=== PATIENT | female | born 1955 | race African-American/Black ===

== ENCOUNTER 2021-01-26 17:53 | Inpatient (IN) | payer MEDICAID, OTHER ==
[~2021-01-26] VITALS: Ht 167.6 cm; Wt 96.6 kg
[2021-01-26] MEDS: METOPROLOL TARTRATE 5MG/5ML VIAL IV SCH ×3 (18:43→21:12)
[2021-01-26 18:46] LABS: BASOPHILS % 0.7 % (0.0-2.0); EOSINOPHILS % 1.8 % (0.0-5.0); HEMOGLOBIN. 13.5 g/dL (12.0-16.0); LYMPHOCYTES % 49.1 % (20.0-50.0); MEAN CORPUSCULAR HEMOGLOBIN 30.9 pg (28.0-32.0); MEAN CORPUSCULAR VOLUME 89.2 fL (81.0-99.0); MEAN PLATELET VOLUME 8.4 fl (7.4-10.4); MONOCYTES % 10.3 % (2.0-8.0); NEUTROPHILS % 38.1 % (40.0-76.0); PLATELET 252 x1000/uL (130-400); RED BLOOD CELL COUNT 4.37 mill/uL (4.2-5.4); RED CELL DISTRIBUTION WIDTH 13.2 % (11.6-14.6)
[2021-01-26 18:50] LABS: CHLORIDE 107 mEq/L (98-107)
[2021-01-26] MEDS ORDERED: POTASSIUM CHLORIDE 20MEQ TABLET SR PO ONE (19:15)
[2021-01-26] MEDS ORDERED: MAGNESIUM 2 G PREMIX 50 ML IV ONE (19:15)
[2021-01-26] MEDS ORDERED: METOPROLOL TARTRATE 25MG TABLET PO ONE (21:30)
[2021-01-27] VITALS (11 sets, daily range): BP systolic 90–142; BP diastolic 50–77
[2021-01-27] MEDS ORDERED: ATOR20TA65 MT (02:22)
[2021-01-27] MEDS ORDERED: AMLO10TA80 MT (02:22)
[2021-01-27] MEDS ORDERED: TAP5 MT (02:22)
[2021-01-27] MEDS ORDERED: QUIN40TA14 MT (02:22)
[2021-01-27] MEDS ORDERED: METO-385 MT (02:22)
[2021-01-27] MEDS ORDERED: ASPI-1497 MT (02:22)
[2021-01-27] MEDS ORDERED: PANT20TA17 MT (02:22)
[2021-01-27] MEDS ORDERED: PANTOPRAZOLE 40MG DR TABLET PO SCH (06:50)
[2021-01-27] MEDS ORDERED: ASPIRIN 81MG TABLET PO SCH (09:00)
[2021-01-27] MEDS ORDERED: AMLODIPINE 10MG TABLET PO SCH (09:00)
[2021-01-27] MEDS ORDERED: METHIMAZOLE 5MG TABLET PO SCH (09:00)
[2021-01-27] MEDS: APIXABAN 5 MG TABLET PO SCH ×2 (09:01→17:22)
[2021-01-27] MEDS: METOPROLOL TARTRATE 50MG TABLET PO SCH ×2 (09:03→17:23)
[2021-01-27 09:58] LABS: BASOPHILS % 0.5 % (0.0-2.0); EOSINOPHILS % 1.5 % (0.0-5.0); HEMATOCRIT. 38.9 % (36.0-48.0); HEMOGLOBIN. 13.3 g/dL (12.0-16.0); LYMPHOCYTES % 41.7 % (20.0-50.0); MEAN CORPUSCULAR HEMOGLOBIN 30.5 pg (28.0-32.0); MEAN CORPUSCULAR VOLUME 88.9 fL (81.0-99.0); MEAN PLATELET VOLUME 7.8 fl (7.4-10.4); MONOCYTES % 10.6 % (2.0-8.0); NEUTROPHILS % 45.7 % (40.0-76.0); PLATELET 264 x1000/uL (130-400); RED BLOOD CELL COUNT 4.38 mill/uL (4.2-5.4); RED CELL DISTRIBUTION WIDTH 13.1 % (11.6-14.6)
[2021-01-27 10:07] LABS: CHLORIDE 108 mEq/L (98-107)
[2021-01-27] MEDS ORDERED: DILTIAZEM HCL 120MG CAPSULE CD 24HR PO SCH (17:00)
[2021-01-27] MEDS ORDERED: DILT120C88 PO (17:06)
[2021-01-27] MEDS ORDERED: METH10TA7 MT (17:06)
[2021-01-27] MEDS ORDERED: ATORVASTATIN CALCIUM 20MG TABLET PO SCH (21:00)
[2021-01-28] MEDS ORDERED: METHIMAZOLE 5MG TABLET PO SCH (09:00)
== END 2021-01-27 21:13 | disposition home or self-care (01) | DRG 201 ==
LOC: ER 17:53 → 3WST 21:41 → ENRESERV 23:23
PROVIDERS: ADMIT Internal Medicine; ATTEND Internal Medicine
DX: I48.91 Unspecified atrial fibrillation (principal); E05.90 Thyrotoxicosis, unspecified without thyrotoxic crisis or storm; I10 Essential (primary) hypertension; E66.9 Obesity, unspecified; E78.5 Hyperlipidemia, unspecified; E87.6 Hypokalemia; Z86.73 Personal history of transient ischemic attack (TIA), and cerebral infarction without residual deficits; Z79.899 Other long term (current) drug therapy; Z68.34 Body mass index [BMI] 34.0-34.9, adult
CPT/HCPCS: 36415; 71045; 80048; 80053; 83880; 84436; 84443; 84480; 84484; 85025; 99291; J3475; J3490

== ENCOUNTER 2022-03-06 09:45 | Emergency (ER) | payer MEDICAID, OTHER ==
[~2022-03-06] VITALS: Ht 170.2 cm; Wt 86.0 kg
[~2022-03-06 09:45] MED LIST: AMLO10TA80 MT; ASPI-1497 MT; ATOR20TA65 MT; DILT120C88 PO; METH10TA7 MT; METO-385 MT; PANT20TA17 MT; QUIN40TA14 MT; TAP5 MT
[2022-03-06] MEDS ORDERED: DILTIAZEM HCL 5MG/ML 5ML VIAL IV ONE (10:30)
[2022-03-06 10:32] LABS: BASOPHILS % 0.5 % (0.0-2.0); EOSINOPHILS % 1.8 % (0.0-5.0); HEMATOCRIT. 42.2 % (36.0-48.0); HEMOGLOBIN. 14.1 g/dL (12.0-16.0); LYMPHOCYTES % 29.6 % (20.0-50.0); MEAN CORPUSCULAR HEMOGLOBIN 29.5 pg (28.0-32.0); MEAN CORPUSCULAR VOLUME 88.4 fL (81.0-99.0); MEAN PLATELET VOLUME 8.3 fl (7.4-10.4); NEUTROPHILS % 60.1 % (40.0-76.0); PLATELET 274 x1000/uL (130-400); RED BLOOD CELL COUNT 4.77 mill/uL (4.2-5.4); RED CELL DISTRIBUTION WIDTH 13.9 % (11.6-14.6)
[2022-03-06 10:40] LABS: CHLORIDE 105 mEq/L (98-107)
[2022-03-06] MEDS ORDERED: DILTIAZEM HCL 120MG CAPSULE CD 24HR PO ONE (11:00)
[2022-03-06] MEDS ORDERED: LORAZEPAM 1MG TABLET PO ONE (11:00)
[2022-03-06 13:48] VITALS: BP 128/81
== END 2022-03-06 14:09 | disposition home or self-care (01) ==
LOC: ER 09:53 → CANBEDREQ 20:18
DX: I48.91 Unspecified atrial fibrillation (principal); I10 Essential (primary) hypertension; Z79.82 Long term (current) use of aspirin; Z79.899 Other long term (current) drug therapy; Z86.39 Personal history of other endocrine, nutritional and metabolic disease
CPT/HCPCS: 36415; 71045; 80053; 83880; 84484; 85025; 93005; 96374; 99285; J3490